=== PATIENT | female | born 1970 | race Caucasian/White ===

== ENCOUNTER 2019-01-27 18:55 | Emergency (ER) | payer MEDICAID ==
[~2019-01-27] VITALS: Ht 160 cm; Wt 72.1 kg
[2019-01-27 19:05] VITALS: BP 109/61
--- NOTE | 2019-01-27 20:08 | NUR ---
PT AMBULATED TO ER BED 9.
--- NOTE | 2019-01-27 20:27 | NUR ---
BIB SELF WITH C/O RIGHT 3RD FINGER PAIN AND SWELLING X 2 MONTHS. SWELLING AND REDNESS AROUND THE KNUCKLE NOTED, STATES IT HAS BEEN GETTING WORSE OVER THE LAST TWO MONTHS. DENIES INJURY. CAP REFILL >3, UNABLE TO BEND AT JOINT.
[2019-01-27 23:05] VITALS: BP 109/61
--- NOTE | 2019-01-27 23:06 | NUR ---
Patient discharged with v/s stable. Written and verbal after care instructions given and explained. Patient alert, oriented and verbalized understanding of instructions. Ambulatory with steady gait. All questions addressed prior to discharge. ID band removed. Patient advised to follow up with PMD. Rx of BACTRIM, MOTRIN given. Patient educated on indication of medication including possible reaction and side effects. Opportunity to ask questions provided and answered. Educated to follow up with [facility], provdied with contact info.
== END 2019-01-27 23:06 | disposition home or self-care (01) ==
LOC: MED 18:55
DX: L03.012 Cellulitis of left finger (principal); F17.210 Nicotine dependence, cigarettes, uncomplicated
CPT/HCPCS: 73130; 99283

== ENCOUNTER 2019-11-08 09:48 | Inpatient (IN) | payer MEDICAID ==
[~2019-11-08] VITALS: Ht 154.9 cm; Wt 68.0 kg
[2019-11-08 09:51] VITALS: BP 125/79
--- NOTE | 2019-11-08 09:53 | NUR ---
PATIENT AMBULATED WITH STEADY GAIT TO BED 3.
--- NOTE | 2019-11-08 10:07 | NUR ---
49YO F C/O THIRD FINGER SWELLING X MONTHS. 5/10 PRESSURE-LIKE PAIN REPORTED ONLY UPON MOVEMENT OF FINGER. PT DENIES ANY TRAUMA. NO REDNESS, NO NUMBNESS. CR <3SECS. VSS; PATIENT POSITIONED FOR COMFORT; HOB ELEVATED; BEDRAILS UP X2; BED DOWN. ER MD MADE AWARE OF PT STATUS. DENIES PM NKA
[2019-11-08] MEDS ORDERED: PIPERACILLIN/TAZOBACTAM 3.375 GM in DEXTROSE 5% 50 ML IV ONE (11:00)
[2019-11-08] MEDS ORDERED: PIPERACILLIN/TAZOBACTAM 3.375 GM VIAL IV ONE (11:10)
[2019-11-08 11:32] LABS: BASOPHILS % (AUTO) 0.8 % (0.0-2.0); EOSINOPHILS # (AUTO) 0.2 K/uL (0-0.4); EOSINOPHILS % (AUTO) 4.3 % (0.0-4.0); HEMATOCRIT 36.2 % (36-48); HEMOGLOBIN 12.1 g/dL (12.0-16.0); LYMPHOCYTES # (AUTO) 1.4 K/uL (2.5-16.5); LYMPHOCYTES % (AUTO) 28.2 % (20.5-51.1); MEAN CORPUSCULAR HEMOGLOBIN 32 pg (27-31); MEAN CORPUSCULAR HGB CONC 34 g/dL (33-37); MEAN CORPUSCULAR VOLUME 94.3 fL (80-94); MONOCYTES # (AUTO) 0.4 K/uL (0.8-1.0); MONOCYTES % (AUTO) 7.5 % (1.7-9.3); NEUTROPHILS # (AUTO) 2.9 K/uL (1.8-7.7); NEUTROPHILS % (AUTO) 59.2 % (42.2-75.2); PLATELET COUNT (AUTO) 262 K/uL (140-450); RED BLOOD CELL COUNT(AUTO) 3.84 MIL/uL (4.20-5.40); RED CELL DISTRIBUTION WIDTH 12.1 % (11.6-13.7)
[2019-11-08 11:46] LABS: ALBUMIN 3.1 g/dL (3.4-5.0); CARBON DIOXIDE 30.9 mmol/L (21-32); CREATININE 0.7 mg/dL (0.6-1.3); POTASSIUM 3.9 mmol/L (3.5-5.1); TOTAL BILIRUBIN 0.2 mg/dL (0.0-1.0)
[2019-11-08] MEDS ORDERED: ONDANSETRON 4 MG/2 ML VIAL IM/IVP PRN (13:05)
[2019-11-08] MEDS ORDERED: HYDROcodone/APAP 7.5/325 MG 1 TAB PO PRN (13:05)
[2019-11-08] MEDS ORDERED: MORPHINE SULFATE 2 MG/ML SYR IVP PRN (13:05)
[2019-11-08] MEDS ORDERED: DOCUSATE SODIUM 100 MG GELCAP PO PRN (13:05)
[2019-11-08] MEDS ORDERED: ACETAMINOPHEN 325 MG TAB PO PRN (13:05)
[2019-11-08] MEDS ORDERED: VANCOMYCIN PER PHARMACY MC PRN (13:30)
--- NOTE | 2019-11-08 13:45 | NUR ---
PT JUST USED RESTROOM PRIOR TO ADMISSION. URINE ENDORSED TO BE COLLECTED IN PATIENT'S ROOM.
--- NOTE | 2019-11-08 13:54 | NUR ---
Patient will be admitted to care of DR URBINA. Admited to MED SURG. Will go to room 125B. Belongings list completed. Report to JESSICA RADER.
[2019-11-08 14:28] LABS: FREE T4 (FREE THYROXINE) 1.01 ng/dL (0.76-1.46); MAGNESIUM 1.9 mg/dL (1.8-2.4); PHOSPHORUS 4.1 mg/dL (2.5-4.9); THYROID STIMULATING HORMONE 2.67 uIU/mL (0.34-3.74)
--- NOTE | 2019-11-08 14:30 | NUR ---
PT RECIEVED TO [facility] VIA [facility], A/O ABLE TO COMMUNICATE NEEDS, SPLINT IN PLACE TO L FINGER. PT DENIES DENIES PAIN, ORIENTED TO UNIT AND POLICIES, PT HX SMOKING REFUSED SMOKING CESSATION EDUCATION, PT DECLINE FLU SHOT, EDUCATION PROVIDED. ASSESSMENT COMPLETED, CALL LIGHT AND PERSONAL ITEMS PLACED WITHIN EASY REACH CALL LIGHT AND SAFETY PRECAUTIONS IN PLACE, WILL CONTINUE TO MONITOR.
[2019-11-08 14:41] LABS: PROTHROMBIN TIME 9.7 secs (10.8-13.4)
[2019-11-08] MEDS: NACL 0.9% 1,000 ML IV SCH ×2 (15:41→23:05)
[2019-11-08] MEDS: VANCOMYCIN 750 MG in DEXTROSE 5% 250 ML IV SCH (15:41)
[2019-11-08 16:00] VITALS: BP 113/58
--- NOTE | 2019-11-08 16:30 | NUR ---
PT SLEEPING AT THIS TIME, APPEARS COMFORTABLE. CALL LIGHT AND PERSONAL ITEMS REMAIN WITHIN EASY REACH CALL LIGHT AND SAFETY PRECAUTIONS IN PLACE, WILL CONTINUE TO MONITOR.
[2019-11-08] MEDS: PIPERACILLIN/TAZOBACTAM 3.375 GM in DEXTROSE 5% 50 ML IV SCH ×2 (18:41→23:41)
--- NOTE | 2019-11-08 19:33 | NUR ---
RECEIVED BEDSIDE REPORT FROM DAY SHIFT NURSE. PATIENT IS AWAKE, ALERT, AND COOPERATIVE. RESPIRATION EVEN UNLABORED ON ROOM AIR. NO DISTRESS NOTED. SKIN IS WARM AND DRY. IV PATENT AND INTACT. LEFT FINGER OSTEOMYELITIS NOTED. PLAN OF CARE WAS DISCUSSED. ALL SAFETY MEASURES IN PLACE. BED IS AT LOW POSITION. CALL LIGHT WITHIN REACH AND VERBALIZES ITS USE. WILL CONTINUE TO MONITOR.
[2019-11-08 19:39] LABS: APPEARANCE,URINE CLEAR (CLEAR); BILIRUBIN,URINE NEGATIVE (NEGATIVE); BLOOD, URINE 3+ (NEGATIVE); COLOR,URINE YELLOW (YELLOW); LEUKOCYTE ESTERASE ,URINE NEGATIVE (NEGATIVE); NITRITE, URINE NEGATIVE (NEGATIVE); PH,URINE 6.5 (5.0-9.0); UGLUCOSE NEGATIVE (NEGATIVE)
--- NOTE | 2019-11-08 19:45 | NUR ---
PER SYSTEMS ARCHITECT PATIENT WANTS TO SMOKE CIGARETTE OUTSIDE. EXPLAINED THAT SMOKING IS NOT ALLOWED. ASKED FAMILY MEMBER TO CONFISCATED THE CIGARETTE. PATIENT AND FAMILY VERBALIZE UNDERSTANDING. WILL CONTINUE TO MONITOR.
[2019-11-08 19:54] LABS: WBC,URINE 0-5 /HPF (0-5)
[2019-11-08 19:56] LABS: RBC,URINE 50-80 /HPF (0-5)
[2019-11-08 20:06] LABS: BARBITURATE, URINE NEG. ng/ml (NEG <=200); BENZODIAZEPINE, URINE NEG. ng/mL (NEG <=200); CANNABINOID, URINE NEG. ng/mL (NEG <=50); COCAINE, URINE NEG. ng/mL (NEG <=300); OPIATE, URINE POS. ng/mL (NEG <=2000); PHENCYCLIDINE SCREEN,URINE NEG. ng/mL (NEG <=25)
--- NOTE | 2019-11-08 20:55 | NUR ---
PATIENT IN BED WATCHING TV RESPIRATION EVEN UNLABORED ON ROOM AIR. NO DISTRESS NOTED. WILL CONTINUE TO MONITOR.
--- NOTE | 2019-11-08 22:27 | NUR ---
CHECKED PATIENT. PATIENT SLEEPING RESPIRATION EVEN UNLABORED ON ROOM AIR. NO DISTRESS NOTED. WILL CONTINUE TO MONITOR.
--- NOTE | 2019-11-08 23:54 | NUR ---
VITALS WERE TAKEN. SCHEDULED ZOSYN IV MED GIVEN PER ORDER. NO DISTRESS NOTED. WILL CONTINUE TO MONITOR.
[2019-11-09] VITALS: BP 104/51
[2019-11-09] MEDS: VANCOMYCIN 750 MG in DEXTROSE 5% 250 ML IV SCH ×2 (02:18→15:59)
--- NOTE | 2019-11-09 02:33 | NUR ---
CHECKED PATIENT. PATIENT SLEEPING RESPIRATION EVEN UNLABORED ON ROOM AIR. NO DISTRESS NOTED. WILL CONTINUE TO MONITOR.
--- NOTE | 2019-11-09 04:20 | NUR ---
CHECKED PATIENT. PATIENT SLEEPING RESPIRATION EVEN UNLABORED ON ROOM AIR. NO DISTRESS NOTED. WILL CONTINUE TO MONITOR.
[2019-11-09] MEDS: PIPERACILLIN/TAZOBACTAM 3.375 GM in DEXTROSE 5% 50 ML IV SCH ×4 (05:54→23:51)
[2019-11-09 06:07] LABS: T4 (THYROXINE) 8.7 ug/dL (4.5-12.0)
[2019-11-09 06:09] LABS: BASOPHILS % (AUTO) 0.8 % (0.0-2.0); EOSINOPHILS # (AUTO) 0.2 K/uL (0-0.4); EOSINOPHILS % (AUTO) 4.4 % (0.0-4.0); HEMATOCRIT 36.9 % (36-48); HEMOGLOBIN 12.4 g/dL (12.0-16.0); LYMPHOCYTES # (AUTO) 1.8 K/uL (2.5-16.5); LYMPHOCYTES % (AUTO) 31.5 % (20.5-51.1); MEAN CORPUSCULAR HEMOGLOBIN 32 pg (27-31); MEAN CORPUSCULAR HGB CONC 34 g/dL (33-37); MEAN CORPUSCULAR VOLUME 94.2 fL (80-94); MONOCYTES # (AUTO) 0.4 K/uL (0.8-1.0); MONOCYTES % (AUTO) 7.7 % (1.7-9.3); NEUTROPHILS # (AUTO) 3.1 K/uL (1.8-7.7); NEUTROPHILS % (AUTO) 55.6 % (42.2-75.2); PLATELET COUNT (AUTO) 285 K/uL (140-450); RED BLOOD CELL COUNT(AUTO) 3.92 MIL/uL (4.20-5.40); RED CELL DISTRIBUTION WIDTH 12.4 % (11.6-13.7); WHITE BLOOD COUNT (AUTO) 5.6 K/uL (4.8-10.8)
[2019-11-09 06:34] LABS: ANION GAP 9.6 (8-16); CARBON DIOXIDE 28.5 mmol/L (21-32); CREATININE 0.8 mg/dL (0.6-1.3); POTASSIUM 4.1 mmol/L (3.5-5.1)
--- NOTE | 2019-11-09 07:13 | NUR ---
ENDORSED PATIENT TO DAY SHIFT NURSE. PATIENT IN STABLE CONDITION.
[2019-11-09] MEDS: NACL 0.9% 1,000 ML IV SCH ×2 (07:15→19:05)
--- NOTE | 2019-11-09 07:15 | NUR ---
RECEIVED BEDSIDE REPORT FROM MANAGER REQUIREMENTS NURSE BENNY FOR CONTINUITY OF CARE. PT IS RESTING ON BED AT THIS TIME AND AROUSABLE TO VOICE. RESPIRATION EVEN AND UNLABORED ON RA. NO SIGNS OF DISTRESS NOTED. L HAND 24G, CLEAN AND INTACT, INFUSING PER MD ORDER AT THIS TIME. R FINGER OSTEOMYELITIS NOTED, OTHERWISE, SKIN CLEAN AND DRY. PT IS CONTINENT AND AMBULATE. SAFETY MEASURES IN PLACE. BED IN LOW POSITION AND CALL LIGHT WITHIN REACH. INSTRUCTED PT TO USE THE CALL LIGHT FOR ANY ASSISTANCE AND PT WAS AWARE.
[2019-11-09 07:55] LABS: MAGNESIUM 1.8 mg/dL (1.8-2.4); PHOSPHORUS 3.7 mg/dL (2.5-4.9)
[2019-11-09 08:00] VITALS: BP 113/54
--- NOTE | 2019-11-09 08:37 | NUR ---
PATIENT HAS BEEN SCREENED AND CATEGORIZED LOW NUTRITION RISK. PATIENT WILL BE SEEN WITHIN 7 DAYS OF ADMISSION. 11/15/[address]
--- NOTE | 2019-11-09 09:20 | NUR ---
ATTENDED TO PT'S CALL LIGHT AND PT COMPLAINED THAT SHE HAS BEEN KEEP NPO AND SHE IS HUNGRY. EXPLAINED TO PT THAT DR IS WAITING FOR THE CONSULT TO SEE HER AND DECIDE IF PROCEDURE IS NEED. NOTIFIED DR DUKE, DR DUKE WAS AWARE AND WILL COME TO TALK TO PT. PT REQUESTED TO GO OUT TO HER CAR TO GET SOMETHING, CALLED SECURITY.
[2019-11-09] MEDS: LACTOBACILLUS RHAMNOSUS GG 1 EACH CAP PO SCH (09:29)
--- NOTE | 2019-11-09 09:50 | NUR ---
DR DUKE IS TALKING TO PT BY BEDSIDE.
[2019-11-09] MEDS ORDERED: NICOTINE TRANSD SYS 14 MG/24 HR PATCH TD SCH ×2 (10:00→10:02)
--- NOTE | 2019-11-09 10:05 | NUR ---
APPLIED NICOTINE PATCH ON R SHOULDER, MED EDUCATION PROVIDED TO PT AND PT WAS AWARE. PT IS LYING ON BED AND RESTING WITH TV ON. NO SIGNS OF DISTRESS NOTED. SAFETY MEASURES IN PLACE. BED IN LOW POSITION AND CALL LIGHT WITHIN REACH. INSTRUCTED PT TO USE THE CALL LIGHT FOR ANY ASSISTANCE, AND PT SAID OK.
--- NOTE | 2019-11-09 10:42 | NUR ---
DISCHARGE PLANNING: A 49 Y/O FEMALE PATIENT FROM HOME, WHO CAME IN DUE TO WORSENING LEFT FINGER SWELLING AND PAIN X 3 MONTHS. NO PERTINENT MEDICAL HISTORY AND SURGICAL HISTORY OF HYSTERECTOMY. INITIAL DIAGNOSIS OF RIGHT FINGER OSTEOMYELITIS. CURRENT LABS INCLUDE WBC 5.6, H/H 12.4/36.9, NA/K 139/4.1, BUN/CREA 9/0.8. (+) OPIATES AND AMPHETAMINES. LEFT 3RD FINGER X RAY ON ADMISSION SHOWED OSTEOMYELITIS. CXR AND RENAL U/S NEGATIVE. ON ZOSYN AND VANCOMYCIN. BLOOD, URINE AND MRSA NARES PENDING. ID AND SURGICAL CONSULTS. DC PLAN TO HOME ONCE STABLE. Addendum: 11/09/19 at 1055 by Catie Augustin CM CONTACTED [facility] ALESSIA [phone], ABLE TO SPEAK TO ART. HE STATED PA CARE IS DELEGATED. CONTACTED SEVERO SABA OF [facility] AT [phone], NO ANSWER. LEFT MESSAGE AND CONTACT INFO. Addendum: 11/09/19 at 1147 by Catie Augustin CM RECEIVED AN ORDER FOR [facility]SFER [facility]. CONTACTED [facility] AT [phone] OPT 2, TOOK 26 MINS FOR ME TO CONNECT TO A LIVE AGENT. SPOKE TO [facility]ANCE MEDICAL MANAGEMENT AGENT, HE STATED HE HAS TO TRANSFER ME TO SEVERO SABA. INFORMED HIM THAT I LEFT MESSAGES TO SEVERO SABA AND DID NOT GET ANY RESPONSE. I ASKED HIM IF WHAT ACUTE HOSPITALS THEY ARE CONTRACTED WITH. HE STATED [facility] IS ONE OF THEM, BUT NEED TO CONFIRM WITH SEVERO SABA. I INFORMED HIM THAT I WILL GO AHEAD AND SEND REFERRAL TO [facility]. Addendum: 11/09/19 at 1403 by Catie Augustin 1216: RECEIVED A CALL FROM SEVERO SABA OF [facility]. INFORMED HER OF THE ORDER. SHE STATED TO GO AHEAD AND FAX THE ORDER TO [phone]. CLINICALS AND ORDER SENT. 1341: CONTACTED SEVERO SABA TO FOLLOW WITH THE ORDER SENT. SHE STATED SHE WILL NEED ASSISTANCE FROM THEIR TRANSFER NURSE TO FIND CONTRACTED FACILITY FOR THIS PATIENT SINCE PATIENT HAS ONLY BEEN ADMITTED 24H AND WILL WILL NOT BE A HIGHER LEVEL OF TRANSFER. SHE STATED SHE WILL GIVE ME A CALL BACK ONCE FACILITY IS AVAILABLE. Addendum: 11/09/19 at 1639 by Catie Augustin CM CONTACTED SEVERO SABA TO FOLLOW UP ON THE TRANSFER. SHE STATED WENDY TRANSFER NURSE WILL BE CALLING US BACK ONCE FACILITY IS AVAILABLE. PROVIDED HER WITH THE RESIDENTS CALL PHONE AND THE PROPOSAL COORDINATOR'S PHONE NUMBER. PROPOSAL COORDINATOR AND DR. STODDARD MADE AWARE. Addendum: 11/10/19 at 0822 by Catie Augustin CM Contacted SEVERO Saba at [phone] x [phone], to follow up on the transfer. She stated she will follow up with Wendy and will give me a call back. Addendum: 11/10/19 at 1059 by Catie Augustin CM Received a call from SEVERO Saba informing me that Wendy from [facility] will be calling me regarding accepting facility. I informed her that there was no culture done b/c there is no open wound. Received a call from Wendy [phone] of [facility], informing me that [facility] in [place] is able to accept the patient pending room number. He provided me with Dr. Shetty phone number [phone] for peer to peer call. He also provided me with fax number [phone] to send clinicals. Clinicals sent. Addendum: 11/10/19 at 1105 by Catie Augustin CM Provided Dr. Wynn of Dr. Shetty phone number. Met with the patient at the bedside to discuss transfer and is in agreement. She requested to speak to Dr. Wynn. Dr. Wynn made aware. Addendum: 11/10/19 at 1127 by Catie Augustin CM I was informed by Dr. Wynn that the patient left AMA. Primary RN Enrique confirmed. ALESSIA Saba and Wendy of [facility] made aware.
[2019-11-09] MEDS ORDERED: INUL1CTB PO (11:04)
[2019-11-09] MEDS ORDERED: PIPE1PDS26 IV (11:04)
[2019-11-09] MEDS ORDERED: VANC1.5P9 IV (11:04)
--- NOTE | 2019-11-09 11:28 | NUR ---
MONTSERRAT assessment/discharge plan Basic Screen: Yes Name: Chava Pierre Home Relationship: Pre-Admission Living Arrangements: Lives with Other Other: Chava Pierre Prior ADL Independent Current Home Health Name/Tel: N/A Current DME/02 Name/Tel: N/A Current Hospice Name/Tel: N/A Current Dialysis Name/Tel: N/A Healthcare Decision Maker: Patient Advance Directive No Information Taught: Advance Directive Community Resources Person Taught: Patient Teaching Tools: Community Resources Computer Generated Print Verbal Factors Affecting Learning: None Participation Level: Active Evaluation: Gestures Understanding Verbalizes Understanding Educator: MONTSERRAT Felix Discipline: Case Mgt/Social Svcs Tentative Discharge Plan Summary: Patient is a 49 year old female admitted for right finger osteomyelitis. I met with patient at bedside. Patient alert and oriented x4. Patient sometimes stays at her 's home. She stated she satisfied with her living arrangement and does not need any assistance with living arrangement. She does not have a pcp at this time. I advised her to contact her health insurance, [employer] [place] [employer] and request to be assign to pcp. She verbalized understanding. She denied hx of mental health and alcohol/substance abuse. I provided her with education on [employer] [email or web address] for community resources. She does not have any questions/concerns at this time. Mill Controller and/or National Account Executive will follow up as needed. Signature: MONTSERRAT Felix Date: Nov 09, 2019
--- NOTE | 2019-11-09 11:40 | NUR ---
PT IS SLEEPING ON BED COMFORTABLY. EVEN AND UNLABORED CHEST RISES NOTED. NO SIGNS OF DISTRESS NOTED. BED IN LOW POSITION AND CALL LIGHT WITHIN REACH.
--- NOTE | 2019-11-09 12:23 | NUR ---
LEFT AND RIGHT FINGERS NO OPEN ACTIVE WOUND. LEFT 3RD FINGER PHALANGES SWELLING NO ERYTHEMA, NO OPEN ACTIVE WOUND. DR. DUKE NOTIFIED. PT PENDING ORTHO CONSULT PER
--- NOTE | 2019-11-09 12:30 | NUR ---
ADMINISTERED ZOSYN VIA IVPB PER MD ORDER, MED EDUCATION PROVIDED TO PT AND PT SAID OK. PT IS RESTING ON BED. NO SIGNS OF DISTRESS NOTED. SAFETY MEASURES IN PLACE.
--- NOTE | 2019-11-09 13:20 | NUR ---
PT IS RESTING ON BED AT THIS TIME. NO SIGNS OF DISTRESS NOTED. SAFETY MEASURES IN PLACE. BED IN LOW POSITION AND CALL LIGHT WITHIN REACH.
--- NOTE | 2019-11-09 14:29 | NUR ---
INFORMED PT THAT DR HAS ADVANCED HER DIET TO REGULAR AND FNS WILL DELIVER A TRAY TO HER ROOM. PT AWARE. PT IS RESTING ON BED AT THIS TIME. NO SIGNS OF DISTRESS NOTED. BED IN LOW POSITION AND CALL LIGHT WITHIN REACH.
--- NOTE | 2019-11-09 14:46 | NUR ---
PT RECEIVED HER LUNCH TRAY.
--- NOTE | 2019-11-09 15:59 | NUR ---
ADMINISTERED VANCOMYCIN VIA IVPB PER MD ORDER, MED ED PROVIDED TO PT AND PT IS RESTING ON BED AT THIS TIME. NO SIGNS OF DISTRESS NOTED. SAFETY MEASURES IN PLACE.
[2019-11-09 16:00] VITALS: BP 109/52
--- NOTE | 2019-11-09 17:37 | NUR ---
PT IS RESTING ON BED AND AROUSABLE TO VOICE. DENIED PAIN, SOB AND DIZZINESS. NO SIGNS OF DISTRESS NOTED. SAFETY MEASURES IN PLACE. BED IN LOW POSITION AND CALL LIGHT WITHIN REACH.
--- NOTE | 2019-11-09 18:01 | NUR ---
RECEIVED A CALL FROM KRYSTIN [phone] FROM [facility], SHE IS THE FINANCE VICE PRESIDENT. PER KRYSTIN, THE ACCEPTING PHYSICAN IS DR JETER AND PHONE # [phone]. PER KRYSTIN, PHYSICIAN FROM [facility] WILL NEED TO CONTACT DR JETER TO GO OVER THE PLAN OF CARE. NOTIFIED CHARGE NURSE VANESSA AND PROVIDED INFORMATION TO THE RESIDENT.
--- NOTE | 2019-11-09 18:43 | NUR ---
ADMINISTERED ZOSYN IVPB. MED ED PROVIDED TO PATIENT. PATIENT RESTING AT THIS TIME. NO SIGNS OF DISTRESS NOTED. SAFETY MEASURES IN PLACE
--- NOTE | 2019-11-09 19:12 | NUR ---
ENDORSED PATIENT AT BEDSIDE TO SAWMILL SUPERVISOR NURSE FREDIS. PATIENT IS AMBULATING AROUND THE [address] WAY. NO SIGN OF DISTRESS NOTED. PATIENT IS IN STABLE CONDITION.
--- NOTE | 2019-11-09 19:13 | NUR ---
RECEIVED BEDSIDE REPORT FROM DAY SHIFT NURSEDAWN FOR CONTINUITY OF CARE. PT IS RESTING ON BED AT THIS TIME AND AROUSABLE TO VOICE. RESPIRATION EVEN AND UNLABORED ON RA. NO SIGNS OF DISTRESS NOTED. IV SITE ON L HAND 24G, PATENT, INTACT AND ASYMPTOMATIC. L FINGER OSTEOMYELITIS NOTED, OTHERWISE, SKIN CLEAN AND DRY. PT IS CONTINENT AND AMBULATE. SAFETY MEASURES IN PLACE. BED IN LOW POSITION AND CALL LIGHT WITHIN REACH.
--- NOTE | 2019-11-09 22:01 | NUR ---
PT SLEEPING IN BED COMFORTABLY. NO ACUTE DISTRESS NOTED.
--- NOTE | 2019-11-09 23:51 | NUR ---
GIVEN ZOSYN MD ORDERED. PT TOLERATED WELL. WILL CONTINUE TO MONITOR.
[2019-11-10] VITALS: BP 98/57
[2019-11-10] MEDS: VANCOMYCIN 750 MG in DEXTROSE 5% 250 ML IV SCH (02:57)
--- NOTE | 2019-11-10 02:57 | NUR ---
GIVEN VANCOMYCIN MD ORDERED. PT TOLERATED WELL.
[2019-11-10] MEDS: NACL 0.9% 1,000 ML IV SCH (05:05)
[2019-11-10] MEDS: PIPERACILLIN/TAZOBACTAM 3.375 GM in DEXTROSE 5% 50 ML IV SCH (05:18)
--- NOTE | 2019-11-10 05:18 | NUR ---
GIVEN ZOSYN MD ORDERED. PT TOLERATED WELL.
--- NOTE | 2019-11-10 06:45 | NUR ---
PT IN STABLE CONDITION, WILL ENDORSE PT TO DAY SHIFT NURSE FOR CONTINUOUS CARE.
[2019-11-10 06:52] LABS: BASOPHILS # (AUTO) 0.1 K/uL (0.00-0.22); EOSINOPHILS # (AUTO) 0.2 K/uL (0-0.4); EOSINOPHILS % (AUTO) 3.6 % (0.0-4.0); HEMATOCRIT 36.1 % (36-48); HEMOGLOBIN 12.2 g/dL (12.0-16.0); LYMPHOCYTES # (AUTO) 1.6 K/uL (2.5-16.5); LYMPHOCYTES % (AUTO) 27.3 % (20.5-51.1); MEAN CORPUSCULAR HEMOGLOBIN 32 pg (27-31); MEAN CORPUSCULAR HGB CONC 34 g/dL (33-37); MEAN CORPUSCULAR VOLUME 94.2 fL (80-94); MONOCYTES # (AUTO) 0.5 K/uL (0.8-1.0); MONOCYTES % (AUTO) 8.5 % (1.7-9.3); NEUTROPHILS # (AUTO) 3.5 K/uL (1.8-7.7); NEUTROPHILS % (AUTO) 59.6 % (42.2-75.2); PLATELET COUNT (AUTO) 278 K/uL (140-450); RED BLOOD CELL COUNT(AUTO) 3.83 MIL/uL (4.20-5.40); WHITE BLOOD COUNT (AUTO) 5.9 K/uL (4.8-10.8)
--- NOTE | 2019-11-10 07:25 | NUR ---
RECEIVED REPORT FROM NIGHT NURSE. PATIENT IN STABLE CONDITION. AAOX4. NO S/S OF DISTRESS NOTED. SKIN WARM AND DRY TO TOUCH. INTRODUCED SELF. IV INTACT AND PATENT TO LEFT HAND WITH IVF NS 100ML/HR. BED IN LOW POSITION. PLANS OF CARE DISCUSSED. CALL LIGHT WITHIN REACH.
[2019-11-10 07:45] LABS: ANION GAP 9.6 (8-16); CARBON DIOXIDE 26.3 mmol/L (21-32); CREATININE 0.7 mg/dL (0.6-1.3); POTASSIUM 3.9 mmol/L (3.5-5.1)
[2019-11-10 07:46] LABS: MAGNESIUM 1.9 mg/dL (1.8-2.4); PHOSPHORUS 3.1 mg/dL (2.5-4.9)
[2019-11-10 08:00] VITALS: BP 93/43
[2019-11-10] MEDS: LACTOBACILLUS RHAMNOSUS GG 1 EACH CAP PO SCH (08:52)
[2019-11-10] MEDS ORDERED: NICOTINE TRANSD SYS 14 MG/24 HR PATCH TD SCH (09:00)
--- NOTE | 2019-11-10 09:00 | NUR ---
PATIENT RECEIVED AM MEDICATIONS. TOLERATED WELL. DENIES ANY PAIN OR DISCOMFORT. NEEDS MET AT THIS TIME.
--- NOTE | 2019-11-10 10:30 | NUR ---
DR. CASTAÑEDA MADE AWARE OF PATIENT'S MRSA NARES POSITIVE.
[2019-11-10] MEDS ORDERED: MUPIROCIN CA NASAL 2% 1GM TUBE NS SCH (11:00)
[2019-11-10] MEDS ORDERED: CHLORHEXADINE GLUC 2% CLOTH TP SCH (11:00)
--- NOTE | 2019-11-10 11:00 | NUR ---
DR. DUKE AT BEDSIDE.
--- NOTE | 2019-11-10 11:10 | NUR ---
PATIENT WANTS TO GO AMA, WE STAY WITH PATIENT FOR A LONG TIME, ENCOURAGING HER TO STAY,,, , NURSE AND ME BUT PATIENT STILL WANTS TO GO AMA, EXPLAINED THE IMPORTANCE OF STAYING AND SHE EXPLAINED ABOUT HER HEALTH.
--- NOTE | 2019-11-10 11:12 | NUR ---
SECURITY ESCORTED PATIENT OUT OF THE UNIT WILL ALL HER BELONGINGS. PATIENT SIGNED AMA FORM WITH DR. DUKE PRESENT. IV REMOVED, CANNULA INTACT. ID BAND REMOVED.
[2019-11-10] MEDS ORDERED: LACT1.4C PO (11:36)
[2019-11-10] MEDS ORDERED: SULF-59 PO (11:36)
--- NOTE | 2019-11-10 13:24 | NUR ---
Late entry. Confirmed with RN that Zosyn IV completed at 1230
== END 2019-11-10 11:15 | disposition left against medical advice (07) | DRG 344 ==
LOC: MED 09:48 → MMU 13:10
PROVIDERS: ADMIT General Practice; ATTEND General Practice
DX: M86.142 Other acute osteomyelitis, left hand (principal); E44.0 Moderate protein-calorie malnutrition; M00.9 Pyogenic arthritis, unspecified; F17.200 Nicotine dependence, unspecified, uncomplicated; M84.442A Pathological fracture, left hand, initial encounter for fracture; F11.10 Opioid abuse, uncomplicated; R31.9 Hematuria, unspecified; F15.10 Other stimulant abuse, uncomplicated; R74.0 Nonspecific elevation of levels of transaminase and lactic acid dehydrogenase [LDH]; Z68.28 Body mass index [BMI] 28.0-28.9, adult; Z90.710 Acquired absence of both cervix and uterus; Z85.42 Personal history of malignant neoplasm of other parts of uterus; Z80.1 Family history of malignant neoplasm of trachea, bronchus and lung; Z71.6 Tobacco abuse counseling
CPT/HCPCS: 36415; 71045; 73140; 76770; 80048; 80053; 80305; 81001; 82150; 83036; 83605; 83690; 83735; 83880; 84100; 84436; 84439; 84443; 84479; 84484; 85025; 85610; 85651; 85730; 86140; 87040; 87081; 87086; 96365; 99285; J2543; J3370; J7030; J7060; Q0092